=== PATIENT | male | born 1960 | race Caucasian/White ===

== ENCOUNTER 2017-10-29 15:45 | Emergency (ER) | payer SELFPAY ==
[~2017-10-29] VITALS: Ht 182.9 cm; Wt 113.4 kg
[~2017-10-29 15:45] MED LIST: CALCIUM CHLOR(10%) 100MG/ML 10ML SYRINGE IV ONE; DEXTROSE (50%) 50ML SYRG IV ONE; EPINEPHrine HCL 1 MG/10 ML SYRG IV ONE; SODIUM BICARBONATE 8.4% INJ 50ML SYRINGE IV ONE
[2017-10-29 15:47] VITALS: BP 0/0
[2017-10-29] MEDS ORDERED: EPINEPHrine HCL 1 MG/10 ML SYRG ONE (15:56)
== END 2017-10-29 20:32 | disposition expired ==
LOC: EDBD 15:45 → ER 15:45
DX: I46.9 Cardiac arrest, cause unspecified (principal); I10 Essential (primary) hypertension
CPT/HCPCS: 31500; 92950; 99285; J0171; J7042